=== PATIENT | female | born 1965 | race Caucasian/White ===

== ENCOUNTER 2016-11-25 08:26 | Day surgery (SDC) | payer BC ==
[~2016-11-25 08:26] MED LIST: Lactated Ringers 1,000 ML IV SCH; Lidocaine 1%/Sod Bicarbonate in NS 8.4% 1 ML Syringe PRN; Sodium Chloride 0.9% 10 ML Syringe FLUSH PRN
[2016-11-25] MEDS ORDERED: Lidocaine 1% 4 ML ONE (08:31)
[2016-11-25] MEDS ORDERED: Propofol 200 MG/20 ML SDV ONE ×5 (08:31→12:53)
[2016-11-25] MEDS ORDERED: fentaNYL 100 MCG/2 ML SDV ONE ×2 (08:32→13:09)
[2016-11-25] MEDS ORDERED: Midazolam 1 MG/ML 2 ML SDV ONE ×2 (08:32→13:00)
[2016-11-25] MEDS ORDERED: Lidocaine 1% 30 ML SDV ONE (09:22)
--- NOTE | 2016-11-25 09:27 | PCM.PREANE ---
Preanesthetic Assessment - Anesthesia/Transfusion/Family Hx Anesthesia History: Prior Anesthesia Without Reaction Family History of Anesthesia Reaction: Other (see below) (no idea- adopted) Transfusion History: No Prior Transfusion(s) - Review of Systems General: No Symptoms Pulmonary: Cough (has allergies) Cardiovascular: No Symptoms Gastrointestinal: No Symptoms Neurological: No Symptoms Other: Reports: Easy Bruising, Diabetes, Thyroid Problems, Sinus Problem ( allergies), Anxiety - Physical Assessment NPO Status Date: 11/24/16 NPO Status Time: 21:30 O2 Sat by Pulse Oximetry: 95 Respiratory Rate: 16 Vital Signs: Last Vital Signs Temp 98.1 F 11/25/16 08:30 Pulse 69 11/25/16 08:30 Resp 16 11/25/16 08:30 BP 120/75 11/25/16 08:30 Pulse Ox 95 11/25/16 08:30 Height: 5 ft 5 in Weight: 79.379 kg ASA Class: 2 Mental Status: Alert & Oriented x3 Airway Class: Mallampati = 1 Dentition: Reports: Normal Dentition, Partial Thyro-Mental Finger Breadths: 3 Mouth Opening Finger Breadths: 3 ROM/Head Extension: Full Lungs: Clear to Auscultation, Normal Respiratory Effort Cardiovascular: Regular Rate, Regular Rhythm - Lab Values: Laboratory Last Values POC Glucose 102 mg/dL (70-105) 11/25/16 08:46 - Imaging/EKG Impressions: CXR 11/08/16 nothing acute EKG 11/08/16 SR 71 - Allergies Allergies/Adverse Reactions: Allergies Allergy/AdvReac Type Severity Reaction Status Date / Time bee pollen Allergy Cannot Verified 11/24/16 15:00 Remember cefdinir Allergy Cannot Verified 11/24/16 15:00 Remember Penicillins Allergy Cannot Verified 11/24/16 15:00 Remember Sulfa (Sulfonamide Allergy Cannot Verified 11/24/16 15:00 Antibiotics) Remember - Blood Blood Available: No - Acknowledgements Anesthesia Type Planned: MAC Pt an Appropriate Candidate for the Planned Anesthesia: Yes Alternatives and Risks of Anesthesia Discussed w Pt/Guardian: Yes Pt/Guardian Understands and Agrees with Anesthesia Plan: Yes PreAnesthesia Questionnaire HEENT History: Reports: Otitis Media, Other (See Below) Other HEENT History: tonsillitis Cardiovascular History: Reports: High Cholesterol, Hypertension Respiratory History: Reports: Asthma, Sleep Apnea, Other (See Below) Other Respiratory History: URI, cough, bronchitis, use of CPAP Gastrointestinal History: Reports: Other (See Below) Other Gastrointestinal History: nausea Genitourinary History: Reports: None WEAVER TIRE CORD History: Reports: None Musculoskeletal History: Reports: Other (See Below) Other Musculoskeletal History: left shoulder pain and bursitis Neurological History: Reports: None Psychiatric History: Reports: Anxiety, Depression, Other (See Below) Other Psychiatric History: fatgiue, insomnia Endocrine/Metabolic History: Reports: Diabetes, Type II, Hypothyroidism, Vitamin D Deficiency Other Endocrine/Metabolic History: thyroid nodule Hematologic History: Reports: None Immunologic History: Reports: None Oncologic (Cancer) History: Reports: None Dermatologic History: Reports: Other (See Below) Other Dermatologic History: dry skin - Past Surgical History Head Surgeries/Procedures: Reports: None HEENT Surgical History: Reports: Adenoidectomy GI Surgical History: Reports: Cholecystectomy Female Surgical History: Reports: Tubal Ligation Male Surgical History: Reports: None Endocrine Surgical History: Reports: Thyroid Biopsy Neurological Surgical History: Reports: None Musculoskeletal Surgical History: Reports: Other (See Below) Other Musculoskeletal Surgeries/Procedures:: hand surgery, low back surgery, carpal tunnel surgery Oncologic Surgical History: Reports: None - SUBSTANCE USE Smoking Status *Q: Current Every Day Smoker Tobacco Use Within Last Twelve Months: Cigarettes Second Hand Smoke Exposure: Yes Days Per Week of Alcohol Use: 3 Number of Drinks Per Day: 1 Total Drinks Per Week: 3 Recreational Drug Use History: No - HOME MEDS Home Medications: Home Meds Albuterol Sulfate [Proair Hfa] 2 puff INH QID PRN 11/24/16 [History] Albuterol [IJD: Albuterol] 1 dose NEB Q4H PRN 11/24/16 [History] Aspirin [Halfprin] 81 mg PO BEDTIME 11/24/16 [History] Budesonide/Formoterol [Symbicort 160-4.5 MCG] 2 puff INH BID 11/24/16 [History] Cholecalciferol (Vitamin D3) [Vitamin D3] 5,000 unit PO DAILY 11/24/16 [History] Escitalopram [Lexapro] 20 mg PO DAILY 11/24/16 [History] Ezetimibe [Zetia] 5 mg PO DAILY 11/24/16 [History] LORazepam [Ativan] 0.5 mg PO BID 11/24/16 [History] Levothyroxine [Synthroid] 50 mcg PO DAILY 11/24/16 [History] Lisinopril 20 mg PO DAILY 11/24/16 [History] Montelukast Sodium 10 mg PO BEDTIME 11/24/16 [History] Ondansetron [Zofran] 8 mg PO TID PRN 11/24/16 [History] metFORMIN [Glucophage XR] 500 mg PO BID 11/24/16 [History] traZODone HCl [Trazodone HCl] 100 mg PO BEDTIME 11/24/16 [History] - CURRENT (IN HOUSE) MEDS Current Meds: Current Medications Lactated Ringer's (Ringers, Lactated) 1,000 mls @ 125 mls/hr IV ASDIRECTED STEPHANIE Stop: 11/25/16 23:00 Last Admin: 11/25/16 08:45 Dose: 125 mls/hr Lidocaine/Sodium Bicarbonate (Buffered Lidocaine 1% In Ns 8.4%) 0.25 ml .XX ONETIME PRN PRN Reason: Prior to IV Start Stop: 11/25/16 18:00 Last Admin: 11/25/16 08:45 Dose: 0.25 ml Sodium Chloride (Saline Flush) 10 ml FLUSH ASDIRECTED PRN PRN Reason: Keep Vein Open Stop: 11/25/16 18:00 Discontinued Medications Fentanyl (Sublimaze) Confirm Administered Dose 100 mcg .ROUTE .STK-MED ONE Stop: 11/25/16 08:33 Lidocaine HCl (Xylocaine-Mpf 1%) Confirm Administered Dose 4 mls @ as directed .ROUTE .STK-MED ONE Stop: 11/25/16 08:32 Midazolam HCl (Versed 1 Mg/Ml) Confirm Administered Dose 2 mg .ROUTE .STK-MED ONE Stop: 11/25/16 08:33 Propofol (Diprivan 20 Ml) Confirm Administered Dose 200 mg .ROUTE .STK-MED ONE Stop: 11/25/16 08:32
[2016-11-25] MEDS ORDERED: Lactated Ringers 1,000 ML ONE (10:06)
[2016-11-25] MEDS ORDERED: Ondansetron 4 MG/2 ML SDV ONE (10:07)
[2016-11-25] MEDS ORDERED: Ketorolac 30 MG/ML SDV ONE (10:09)
[2016-11-25] MEDS ORDERED: Clindamycin Phosphate 900 MG in Sodium Chloride 0.9% 100 ML IV ONE (11:11)
[2016-11-25] MEDS: Bupivacaine 0.5% 30 ML SDV ONE ×2 (11:26→11:39)
[2016-11-25] MEDS ORDERED: Albuterol 0.083% 2.5 MG/3 ML Neb Soln NEB PRN (11:40)
[2016-11-25] MEDS ORDERED: diphenhydrAMINE 50 MG/ML SDV IVPUSH PRN (11:40)
[2016-11-25] MEDS ORDERED: Ondansetron 4 MG/2 ML SDV IVPUSH PRN (11:40)
[2016-11-25] MEDS ORDERED: HYDROmorphone 1 MG/ML Syringe ONE (11:52)
[2016-11-25] MEDS ORDERED: HYDROmorphone 0.5 MG/0.5 ML Syringe IVPUSH PRN (12:30)
[2016-11-25] MEDS ORDERED: fentaNYL 100 MCG/2 ML SDV IVPUSH PRN (12:30)
--- NOTE | 2016-11-25 13:40 | PCM48HPAN ---
Post Anesthesia Note - EVALUATION WITHIN 48HRS OF ANESTHETIC Vital Signs in Normal Range: Yes Patient Participated in Evaluation: Yes Respiratory Function Stable: Yes Airway Patent: Yes Cardiovascular Function Stable: Yes Hydration Status Stable: Yes Pain Control Satisfactory: Yes Nausea and Vomiting Control Satisfactory: Yes Mental Status Recovered: Yes (rests- no complaints)
[2016-11-25 15:05] VITALS: BP 128/72
--- NOTE | 2016-11-25 15:37 | CR ---
Left foot: Eight fluoroscopic spot views were obtained of the left foot utilizing C-arm device. Comparison: No prior foot exam. Pin is seen crossing the base of the first metatarsal to the second cuneiform bone. Final film shows [address] from the base of the first metatarsal to the first cuneiform bone. Fluoroscopy time is given as 21.8 seconds. Impression: 1. Operative change as described above. Diagnostic code #2
--- NOTE | 2016-11-26 12:17 | OR ---
DATE OF OPERATION: 11/25/2016 SURGEON: Angelo Ibrahim II, DPM LOCATION: [facility]. ANESTHESIA: LMA general with local block about the left foot. ANESTHESIA PROVIDER: Isabel Graham CRNA. HEMOSTASIS: Left pneumatic thigh tourniquet at 300 mmHg pressure. 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 OPERATION PERFORMED: Lapidus bunionectomy with internal staple fixation, left foot. DESCRIPTION OF PROCEDURE: Upon arrival and admission to the hospital, the patient was examined and cleared for surgery by the assigned Anesthesia provider. IV access was obtained in the preoperative area, where prophylactic antibiotics consisting of 900 mg of clindamycin IV piggyback was administered. The patient was then brought to the OR via gurney and transferred onto the operating room table in the supine position. The patient was given a combination of sedations and was adequately sedated, before being intubated for LMA general anesthesia. During this time of sedation, the patient received 10 mL of a 1:1 mixture of 1% lidocaine plain and 0.25% Marcaine plain in the form of a local infiltrative block about the ankle as well as the operatory site located at the dorsal medial aspect of the left first metatarsal cuneiform joint. The left lower extremity was wrapped with cotton Webril padding about the thigh and preparation for a nonsterile pneumatic thigh tourniquet, which was then later draped with a sterile drape. The left lower extremity would then be prepped and draped in the usual aseptic manner. The left lower extremity would then be elevated and exsanguinated with an Esmarch bandage before inflating the pneumatic thigh tourniquet about the left thigh to 300 mmHg pressure. The Esmarch bandage was removed and the left lower extremity was placed back to the level of the operating room table. Attention was then directed to the medial column of the left foot, where incision just distal to the medial aspect of the left first metatarsal phalangeal joint was created and then carried to a centimeter proximal to the left first metatarsal cuneiform joint. This was a controlled-depth skin incision taken down to the level of the subcutaneous structures with care taken to retract the vital neurovascular structures within the area. Continued soft tissue dissection was then taken down to the level of the teno-capsular structures overlying the first metatarsophalangeal joint and a linear capsulotomy was created just medial to the extensor hallucis longus tendon. The left first metatarsal phalangeal joint was then dissected free of its soft tissue attachments and the McGlamry scoop elevator was utilized to free up the adhesions at the plantar aspect of the left first metatarsal head. Likewise, the lateral capsule was released, was undertaken at the lateral extent of the first metatarsal phalangeal joint. A release of the adductor hallucis tendon was undertaken of the base at the lateral aspect of the proximal phalanx of the hallux. A power sagittal saw was then utilized to resect the medial eminence about the medial aspect of the left first metatarsal head. Attention was then directed to the left first metatarsal cuneiform joint and a transverse capsulotomy was performed to gain access to the joint, which was then distracted with a laminar subeditor. This allowed for dissection of the cartilaginous surfaces of the left first metatarsocuneiform joint with the power sagittal saw. A small wedge of bone was taken out laterally to allow for reduction of the intermetatarsal angle of the first and second metatarsals. Intraoperative fluoroscopy in the AP and lateral views confirmed reduction of this intermetatarsal angle and the resected bases of the medial cuneiform as well as the first metatarsal were denuded of the cartilage and subchondral bone plate on both resected surfaces were fenestrated with a 0.062 K-wire. The resected surfaces were then placed in the close apposition and with the intermetatarsal angle reduced and held in place with a 0.062 K-wire allowing for a 20 x 20 mm Nitinol [employer] staple to be placed at the dorsal aspect of the first metatarsal cuneiform joint and the second staple was then placed, being 15 mm x 15 mm at the medial extent of the first metatarsal cuneiform joint. Intraoperative fluoroscopy AP and lateral views then confirmed placement of the jenny and the wound was copiously lavaged with sterile saline solution. Sutures and closure of the deep and capsular structures were undertaken utilizing 3-0 Vicryl, while the subcuticular layer was reapproximated with 4-0 Vicryl and the skin was reapproximated with running interlocking simple suture knots utilizing 4-0 Prolene and postoperative anesthesia would consist of an additional 20 mL of 0.25% Marcaine plain injected about the operatory site. Dressings would then consist of Betadine-soaked Adaptic gauze, 4 x 4 gauze, Cody, and Cyrus bandage. Upon near completion of the surgery, the left pneumatic thigh tourniquet was deflated. It was noted that digits 1 through 5 of the left foot became pink indicating that normal vascular perfusion had returned. The patient appeared to tolerate the procedure and anesthesia well, and will leave the OR for recovery with her vital signs being stable and vascular status intact digits 1 through 5 of the left foot with no apparent complications. Prior to leaving the operatory room for postoperative anesthesia care unit, a below-knee fiberglass splint was placed about the posterior aspects of the left lower extremity and plantar aspect of the left foot. In recovery, the patient received written and oral postoperative instructions of postoperative pain medication. The patient had revealed prior to the surgery that she had no history of DVT. The patient will be nonweightbearing with crutches or a knee scooter for her left lower extremity. The patient will follow up for her first postoperative followup evaluation within the next 72 hours. Estimated blood loss for this procedures was 10 to 15 mL. There were no apparent or obvious complications. ESTIMATED BLOOD LOSS: MMODAL /[id number]
== END 2016-11-25 14:55 | disposition home or self-care (01) ==
LOC: JD.SDS 08:26
PROVIDERS: ATTEND Podiatrist Foot & Ankle Surgery
DX: M21.612 Bunion of left foot (principal); I10 Essential (primary) hypertension; E11.9 Type 2 diabetes mellitus without complications; E03.9 Hypothyroidism, unspecified; F17.210 Nicotine dependence, cigarettes, uncomplicated; F41.9 Anxiety disorder, unspecified; E55.9 Vitamin D deficiency, unspecified; E78.00 Pure hypercholesterolemia, unspecified; J44.9 Chronic obstructive pulmonary disease, unspecified; Z87.440 Personal history of urinary (tract) infections; Z79.82 Long term (current) use of aspirin; Z79.84 Long term (current) use of oral hypoglycemic drugs; Z79.51 Long term (current) use of inhaled steroids; Z79.899 Other long term (current) drug therapy; Z88.0 Allergy status to penicillin; Z88.1 Allergy status to other antibiotic agents; Z88.2 Allergy status to sulfonamides; Z91.030 Bee allergy status; Z98.51 Tubal ligation status; Z90.49 Acquired absence of other specified parts of digestive tract; Z98.890 Other specified postprocedural states
CPT/HCPCS: 28297; 76000; 82962; J1170; J1885; J2250; J2405; J3010; J7030; J7120; 01480; C1713; C1769; J2704

== ENCOUNTER 2017-03-22 09:29 | Day surgery (SDC) | payer BC ==
--- NOTE | 2017-03-22 09:27 | PCM.PREANE ---
<Isabel Graham - Last Filed: 03/22/17 09:21> Preanesthetic Assessment - Anesthesia/Transfusion/Family Hx Anesthesia History: Prior Anesthesia Without Reaction Family History of Anesthesia Reaction: Other (see below) (not known adopted) Transfusion History: No Prior Transfusion(s) Intubation History: Unknown - Review of Systems Pulmonary: No Symptoms (History of Asthma/current day smoker 0.5pk/day times 37 years/AYANA with CPAP) Cardiovascular: No Symptoms (history of HTN) Other: Reports: Diabetes (AM blood sugar= ), Thyroid Problems (hypothyroid), Depression, Anxiety - Physical Assessment NPO Status Date: 03/21/17 Height: 1.65 m ASA Class: 2 Mental Status: Alert & Oriented x3 - Lab Values: MRSA screen negative. HGB A1C: 5.4% All other labs reviewed and noted and within acceptable ranges to proceed with scheduled procedure. HCG: History of tubal ligation. - Imaging/EKG Impressions: EKG: SR rate=71. CXR: negative - Allergies Allergies/Adverse Reactions: Allergies Allergy/AdvReac Type Severity Reaction Status Date / Time bee pollen Allergy Cannot Verified 03/18/17 14:33 Remember cefdinir Allergy Cannot Verified 03/18/17 14:33 Remember Penicillins Allergy Cannot Verified 03/18/17 14:33 Remember Sulfa (Sulfonamide Allergy Cannot Verified 03/18/17 14:33 Antibiotics) Remember - Anesthesia Plan Pre-Op Medication Ordered: None - Acknowledgements Anesthesia Type Planned: General Anesthesia Pt an Appropriate Candidate for the Planned Anesthesia: Yes Alternatives and Risks of Anesthesia Discussed w Pt/Guardian: Yes Pt/Guardian Understands and Agrees with Anesthesia Plan: Yes PreAnesthesia Questionnaire HEENT History: Reports: Allergic Rhinitis, Otitis Media, Sinusitis, Other (See Below) Other HEENT History: tonsillitis, otitis externa, contacts/glasses, partials Cardiovascular History: Reports: High Cholesterol, Hypertension Respiratory History: Reports: Asthma, Sleep Apnea, Other (See Below) Other Respiratory History: URI, cough, bronchitis, use of CPAP Gastrointestinal History: Reports: Other (See Below) Other Gastrointestinal History: nausea Genitourinary History: Reports: None, UTI, Recurrent, Other (See Below) Other Genitourinary History: hematuria RN CLINICAL RESEARCH History: Reports: None Musculoskeletal History: Reports: Other (See Below) Other Musculoskeletal History: left shoulder pain and bursitis Neurological History: Reports: None Psychiatric History: Reports: Anxiety, Depression, Other (See Below) Other Psychiatric History: fatgiue, insomnia Endocrine/Metabolic History: Reports: Diabetes, Type II, Hypothyroidism, Vitamin D Deficiency Other Endocrine/Metabolic History: thyroid nodule Hematologic History: Reports: None Immunologic History: Reports: None Oncologic (Cancer) History: Reports: None Dermatologic History: Reports: Other (See Below) Other Dermatologic History: dry skin - Past Surgical History Head Surgeries/Procedures: Reports: None HEENT Surgical History: Reports: Adenoidectomy Cardiovascular Surgical History: Reports: None Respiratory Surgical History: Reports: None GI Surgical History: Reports: Cholecystectomy Female Surgical History: Reports: Tubal Ligation Male Surgical History: Reports: None Endocrine Surgical History: Reports: Thyroid Biopsy Neurological Surgical History: Reports: None Musculoskeletal Surgical History: Reports: Other (See Below) Other Musculoskeletal Surgeries/Procedures:: hand surgery, low back surgery, carpal tunnel surgery Oncologic Surgical History: Reports: None - SUBSTANCE USE Smoking Status *Q: Current Every Day Smoker Tobacco Use Within Last Twelve Months: Cigarettes Second Hand Smoke Exposure: Yes Days Per Week of Alcohol Use: 3 Number of Drinks Per Day: 1 Total Drinks Per Week: 3 Recreational Drug Use History: No - HOME MEDS Home Medications: Home Meds Albuterol Sulfate [Proair Hfa] 2 puff INH QID PRN 11/24/16 [History] Albuterol [IJD: Albuterol] 1 dose NEB Q4H PRN 11/24/16 [History] Aspirin [Halfprin] 81 mg PO BEDTIME 11/24/16 [History] Budesonide/Formoterol [Symbicort 160-4.5 MCG] 2 puff INH BID 11/24/16 [History] Cholecalciferol (Vitamin D3) [Vitamin D3] 5,000 unit PO DAILY 11/24/16 [History] Escitalopram [Lexapro] 20 mg PO DAILY 11/24/16 [History] Ezetimibe [Zetia] 5 mg PO DAILY 11/24/16 [History] LORazepam [Ativan] 0.5 mg PO BID 11/24/16 [History] Levothyroxine [Synthroid] 50 mcg PO DAILY 11/24/16 [History] Lisinopril 20 mg PO DAILY 09/06/17 [History] Montelukast Sodium 10 mg PO BEDTIME 11/24/16 [History] Ondansetron [Zofran] 8 mg PO TID PRN 11/24/16 [History] metFORMIN [Glucophage XR] 500 mg PO BID 11/24/16 [History] traZODone HCl [Trazodone HCl] 100 mg PO BEDTIME 11/24/16 [History] - CURRENT (IN HOUSE) MEDS Current Meds: Current Medications Albuterol (Proventil Neb Soln) 2.5 mg NEB ONETIME ONE Stop: 03/22/17 10:13 Lactated Ringer's (Ringers, Lactated) 1,000 mls @ 125 mls/hr IV ASDIRECTED STEPHANIE Stop: 03/22/17 18:00 Lidocaine/Sodium Bicarbonate (Buffered Lidocaine 1% In Ns 8.4%) 0.25 ml IV ONETIME PRN PRN Reason: Prior to IV Start Stop: 03/22/17 18:00 Scopolamine (Scopolamine) 1 each TOP ONETIME ONE Stop: 03/22/17 10:13 Sodium Chloride (Saline Flush) 10 ml FLUSH ASDIRECTED PRN PRN Reason: Keep Vein Open Stop: 03/22/17 18:00 Discontinued Medications Cefazolin Sodium (Ancef) Confirm Administered Dose 2 gm .ROUTE .STK-MED ONE Stop: 03/22/17 09:00 Dexamethasone (Dexamethasone) Confirm Administered Dose 4 mg .ROUTE .STK-MED ONE Stop: 03/22/17 09:43 Fentanyl (Sublimaze) Confirm Administered Dose 250 mcg .ROUTE .STK-MED ONE Stop: 03/22/17 09:00 Hydromorphone HCl (Dilaudid) Confirm Administered Dose 1 mg .ROUTE .STK-MED ONE Stop: 03/22/17 09:00 Lidocaine/Epinephrine (Xylocaine 1% With Epinephrine 1:100,000) Confirm Administered Dose 20 ml .ROUTE .STK-MED ONE Stop: 03/22/17 10:00 Midazolam HCl (Versed 1 Mg/Ml) Confirm Administered Dose 2 mg .ROUTE .STK-MED ONE Stop: 03/22/17 09:00 Ondansetron HCl (Zofran) Confirm Administered Dose 4 mg .ROUTE .STK-MED ONE Stop: 03/22/17 09:00 Propofol (Diprivan 20 Ml) Confirm Administered Dose 200 mg .ROUTE .STK-MED ONE Stop: 03/22/17 09:00 Rocuronium [place] (Zemuron) Confirm Administered Dose 50 mg .ROUTE .STK-MED ONE Stop: 03/22/17 09:00 Sodium Chloride (Normal Saline) Confirm Administered Dose 50 ml .ROUTE .STK-MED ONE Stop: 03/22/17 10:00 <Lucia Sherman - Last Filed: 03/22/17 10:17> Preanesthetic Assessment - Anesthesia/Transfusion/Family Hx Type of Anesthesia Reaction: Excessive Nausea/Vomiting - Review of Systems General: Other Gastrointestinal: Other Other: Reports: Diabetes (AM blood sugar= 94) - Physical Assessment NPO Status Time: 21:30 Pulse: 66 O2 Sat by Pulse Oximetry: 95 Respiratory Rate: 16 Blood Pressure: 128/77 Temperature: 36.0 C Weight: 83.2 kg Airway Class: Mallampati = 2 Dentition: Reports: Partial (upper partial removed) Thyro-Mental Finger Breadths: 3 Mouth Opening Finger Breadths: 3 ROM/Head Extension: Full Lungs: Normal Respiratory Effort, Wheezing (respiratory treatment prior to OR) Cardiovascular: Regular Rate, Regular Rhythm, No Murmurs - Blood Blood Available: No Product(s) Available: None
[~2017-03-22 09:29] MED LIST changes: +HYDROmorphone 1 MG/ML Syringe ONE; -Lactated Ringers 1,000 ML IV SCH; +Lidocaine 1%/Sod Bicarbonate in NS 8.4% 1 ML Syringe IV PRN; -Lidocaine 1%/Sod Bicarbonate in NS 8.4% 1 ML Syringe PRN; +Midazolam 1 MG/ML 2 ML SDV ONE; +Ondansetron 4 MG/2 ML SDV ONE; +Propofol 200 MG/20 ML SDV ONE; +Rocuronium 50 MG/5 ML Vial ONE; +ceFAZolin 1 GM Vial ONE; +fentaNYL 250 MCG/5 ML SDV ONE
[2017-03-22] MEDS ORDERED: Dexamethasone 4 MG/ML SDV ONE (09:42)
[2017-03-22] MEDS ORDERED: Sodium Chloride 0.9% 50 ML SDV ONE (09:59)
[2017-03-22] MEDS ORDERED: Lidocaine 1% with EPINEPHrine 1:100,000 20 ML MDV ONE (09:59)
[2017-03-22] MEDS: Lactated Ringers 1,000 ML IV SCH ×2 (10:00→13:00)
[2017-03-22] MEDS ORDERED: Albuterol 0.083% 2.5 MG/3 ML Neb Soln NEB ONE ×2 (10:12→12:38)
[2017-03-22] MEDS ORDERED: Scopolamine 1 MG Transdermal Patch TOP ONE (10:12)
[2017-03-22] MEDS ORDERED: Clindamycin Phosphate 900 MG in Sodium Chloride 0.9% 100 ML IV ONE (10:45)
[2017-03-22] MEDS ORDERED: HYDROmorphone 1 MG/ML Syringe ONE (12:02)
[2017-03-22] MEDS ORDERED: Lactated Ringers 1,000 ML ONE (12:02)
--- NOTE | 2017-03-22 12:11 | PCM.POSTAN ---
POST ANESTHESIA ASSESSMENT - MENTAL STATUS Mental Status: Alert, Oriented - VITAL SIGNS Pulse Rate: 89 SaO2: 100 Resp Rate: 14 Blood Pressure: 128/70 Temperature: 97.6 C - RESPIRATORY Respiratory Status: Respiratory Rate WNL, Airway Patent, O2 Saturation Stable, Supplemental Oxygen - CARDIOVASCULAR CV Status: Pulse Rate WNL, Blood Pressure Stable - GASTROINTESTINAL GI Status: No Symptoms - PAIN Pain Score: 0 Free Text/Narrative:: 0 - POST OP HYDRATION Hydration Status: Adequate & Stable
[2017-03-22] MEDS ORDERED: Ondansetron 4 MG/2 ML SDV IVPUSH PRN ×2 (12:12→12:38)
[2017-03-22] MEDS ORDERED: HYDROmorphone 0.5 MG/0.5 ML Syringe IVPUSH PRN (12:12)
[2017-03-22] MEDS ORDERED: fentaNYL 100 MCG/2 ML SDV IVPUSH PRN (12:12)
[2017-03-22] MEDS ORDERED: Neostigmine Methylsulfate 1 MG/ML 5 ML Syringe ONE (12:12)
[2017-03-22] MEDS ORDERED: Metoclopramide 10 MG/2 ML SDV IVPUSH PRN (12:12)
--- NOTE | 2017-03-22 12:15 | PCM.OPNOTE ---
- General Post-Op/Procedure Note Date of Surgery/Procedure: 03/22/17 Operative Procedure(s): Total vaginal hysterectomy bilateral salpingo- oophorectomy 51748 Pre Op Diagnosis: Postmenopausal bleeding Post-Op Diagnosis: Same Anesthesia Technique: General ET Tube Primary Surgeon: Ajit Brennan Secondary Surgeon: Michael Stafford (1st asst) Anesthesia Provider: Lucia Sherman Seat Mender: Jason Guzman (2nd asst) Reason Seat Mender Was Necessary: Retraction, difficult procedure, decrease col-comorbidity and co-mortality Role of Seat Mender: Retraction, difficult procedure, decrease col-comorbidity and co-mortality Fluid Replacement, Intraop: 1,700 Output, Urine Amount: 225 EBL in mLs: 25 Drain/Tube Comments:: None Complications: None Condition: Good Free Text/Narrative:: Patient was transported to operating room #2 and placed under general anesthesia in the low dorsal lithotomy position. Prepared and draped in a sterile fashion. SCDs in place and functioning prior surgery. She had received clindamycin prior to surgery 900 mg as history of allergy to cephalosporins and penicillin. Timeout performed confirming name, date of , and procedure as total vaginal hysterectomy bilateral salpingo-oophorectomy possible abdominal approach if needed the cervix was grasped and injected with 0.25% lidocaine 20 mL with epinephrine and multiple confluent areas. The cervix was circumscribed. Posterior colpotomy was performed without difficulty. The uterosacral and cardinal ligament bundles were crossclamped with LigaSure activated and incised. Proceeding cephalad additional pedicle collected bilaterally crossclamped activated and incised the anterior colpotomy was then performed without difficulty and proceeding in a pedicle fashion cephalad until the area of the triple pedicles bilaterally the uterus was inverted through the posterior portion of the incision crossclamped with Luciana clamps triple pedicles bilaterally and the uterus and cervix removed. The tube and ovary on the left side were grasped and the infundibulopelvic ligament crossclamped with LigaSure activated and incised. No bleeding, same procedure was carried out on the opposite side no bleeding. Reinspection of the areas of the removal of the tubes at the infundibulopelvic ligament and no bleeding sponge needle pack asthma sharp count correct 2 and the posterior vaginal cuff was closed with a running locking suture of #0 Monocryl. The anterior posterior vaginal cuff and approximated incorporating the peritoneum anteriorly as well with running locking suture of 0 Monocryl. No blood transfusions required patient was transported to postanesthesia care unit in satisfactory condition.
[2017-03-22] MEDS ORDERED: fentaNYL 100 MCG/2 ML SDV ONE (12:30)
[2017-03-22] MEDS ORDERED: Acetaminophen/oxyCODONE 325-5 MG Tab PO ONE (14:32)
[2017-03-22 15:00] VITALS: BP 123/58
== END 2017-03-22 14:45 | disposition home or self-care (01) ==
LOC: JD.SDS 09:29
PROVIDERS: ATTEND Obstetrics & Gynecology
DX: D25.9 Leiomyoma of uterus, unspecified (principal); M79.89 Other specified soft tissue disorders; E11.9 Type 2 diabetes mellitus without complications; E03.9 Hypothyroidism, unspecified; Z88.0 Allergy status to penicillin; Z88.1 Allergy status to other antibiotic agents; Z88.2 Allergy status to sulfonamides; Z91.030 Bee allergy status; Z79.82 Long term (current) use of aspirin; Z79.84 Long term (current) use of oral hypoglycemic drugs; Z79.899 Other long term (current) drug therapy; F17.210 Nicotine dependence, cigarettes, uncomplicated
CPT/HCPCS: 36415; 58262; 82962; 86850; 86900; 86901; 94640; A9270; J1100; J1170; J2250; J2405; J2710; J3010; J7030; J7120; 00944; J0690; J2704

== ENCOUNTER 2020-09-30 19:51 | Emergency (ER) | payer BC ==
[2020-09-30 20:14] VITALS: BP 151/88; PULSE 75
[2020-09-30] MEDS ORDERED: Levofloxacin 250 MG Tab PO ONE (20:51)
--- NOTE | 2020-09-30 21:03 | EDM.PDOC ---
ED HPI GENERAL MEDICAL PROBLEM - General Chief Complaint: [employer]GER Problem Stated Complaint: VAGINAL BLEEDING/PRESSURE Time Seen by Provider: 09/30/20 20:15 Source of Information: Reports: Patient, RN Notes Reviewed History Limitations: Reports: No Limitations - History of Present Illness INITIAL COMMENTS - FREE TEXT/NARRATIVE: Patient is a 54-year-old female who presents to the ER for evaluation of her possible vaginal bleeding. Patient states that at roughly 5:00 PM, she noticed some bright red blood when she was wiping after she went to the bathroom. She notes since then, she has had urinary frequency, and a severe sense of pressure and urgency when she has to urinate. She is not having any dysuria. She states that she has had a hysterectomy with both of her ovaries removed several years ago, and has had no issues with her pelvic area since then. She thought maybe she was passing some tissue as well. She denies any sick-like symptoms fever chills, cough or shortness of breath, nausea/vomiting/diarrhea. Further denying any rectal issues like hemorrhoids that could be the source of the bleeding. Patient states that she has had no trauma to the area however at about 1 PM this afternoon, she did strike her right hip fairly hard on a countertop, but she is having no pain in that area. Notes that her and her last had sex on September 26, and has denied any sort of rough intercourse since then. Patient had the hysterectomy performed by Dr. Brennan. Lower Abdominal Pain Score (Numeric/FACES): 7 - Related Data Allergies Allergy/AdvReac Type Severity Reaction Status Date / Time bee pollen Allergy Cannot Verified 09/30/20 20:14 Remember cefdinir Allergy Cannot Verified 09/30/20 20:14 Remember Penicillins Allergy Cannot Verified 09/30/20 20:14 Remember Sulfa (Sulfonamide Allergy Cannot Verified 09/30/20 20:14 Antibiotics) Remember Home Meds: Home Meds Albuterol Sulfate [Proair Hfa] 2 puff INH QID PRN 11/24/16 [History] Albuterol [IJD: Albuterol] 1 dose NEB Q4H PRN 11/24/16 [History] Aspirin [Halfprin] 81 mg PO BEDTIME 11/24/16 [History] Budesonide/Formoterol [Symbicort 160-4.5 MCG] 2 puff INH BID 11/24/16 [History] Cholecalciferol (Vitamin D3) [Vitamin D3] 5,000 unit PO DAILY 11/24/16 [History] Escitalopram [Lexapro] 20 mg PO DAILY 11/24/16 [History] Ezetimibe [Zetia] 5 mg PO DAILY 11/24/16 [History] LORazepam [Ativan] 0.5 mg PO BID 11/24/16 [History] Levothyroxine [Synthroid] 50 mcg PO DAILY 11/24/16 [History] Lisinopril 20 mg PO DAILY 11/24/16 [History] Montelukast Sodium 10 mg PO BEDTIME 11/24/16 [History] Ondansetron [Zofran] 8 mg PO TID PRN 11/24/16 [History] metFORMIN [Glucophage XR] 500 mg PO BID 11/24/16 [History] traZODone HCl [Trazodone HCl] 100 mg PO BEDTIME 11/24/16 [History] Ondansetron [Zofran ODT] 4 mg PO Q6H #20 tab.dis 03/22/17 [Rx] Ondansetron [Zofran ODT] 4 mg PO Q6H #30 tab.dis 03/22/17 [Rx] oxyCODONE HCl/Acetaminophen [Percocet 5-325 mg Tablet] 1 each PO Q6H #25 tablet 03/22/17 [Rx] levoFLOXacin [Levofloxacin] 250 mg PO DAILY #4 tablet 09/30/20 [Rx] Past Medical History HEENT History: Reports: Otitis Media, Other (See Below) Other HEENT History: tonsillitis Cardiovascular History: Reports: High Cholesterol, Hypertension Respiratory History: Reports: Asthma, Sleep Apnea, Other (See Below) Other Respiratory History: URI, cough, bronchitis, use of CPAP Gastrointestinal History: Reports: Other (See Below) Other Gastrointestinal History: nausea Genitourinary History: Reports: None Other Genitourinary History: hematuria [employer]NAGER History: Reports: None Musculoskeletal History: Reports: Other (See Below) Other Musculoskeletal History: left shoulder pain and bursitis Neurological History: Reports: None Psychiatric History: Reports: Anxiety, Depression, Other (See Below) Other Psychiatric History: fatgiue, insomnia Endocrine/Metabolic History: Reports: Diabetes, Type II, Hypothyroidism, Vitamin D Deficiency Other Endocrine/Metabolic History: thyroid nodule Hematologic History: Reports: None Immunologic History: Reports: None Oncologic (Cancer) History: Reports: None Dermatologic History: Reports: Other (See Below) Other Dermatologic History: dry skin - Past Surgical History Head Surgeries/Procedures: Reports: None HEENT Surgical History: Reports: Adenoidectomy Cardiovascular Surgical History: Reports: None Respiratory Surgical History: Reports: None GI Surgical History: Reports: Cholecystectomy Female Surgical History: Reports: Hysterectomy, Tubal Ligation Endocrine Surgical History: Reports: Thyroid Biopsy Neurological Surgical History: Reports: None Musculoskeletal Surgical History: Reports: Other (See Below) Other Musculoskeletal Surgeries/Procedures:: hand surgery, low back surgery, carpal tunnel surgery, toe amputation Oncologic Surgical History: Reports: None Social & Family History - Tobacco Use Tobacco Use Status *Q: Current Every Day Tobacco User Years of Tobacco use: 40 Packs/Tins Daily: 0.5 - Caffeine Use Caffeine Use: Reports: Coffee - Recreational Drug Use Recreational Drug Use: No ED ROS GENERAL - Review of Systems Review Of Systems: Comprehensive ROS is negative, except as noted in HPI. ED EXAM, RENAL/ - Physical Exam Exam: See Below Exam Limited By: No Limitations General Appearance: Alert, WD/WN, No Apparent Distress Respiratory/Chest: No Respiratory Distress, Lungs Clear, Normal Breath Sounds, No Accessory Muscle Use, Chest Non-Tender Cardiovascular: Normal Peripheral Pulses, Regular Rate, Rhythm, No Edema GI/Abdominal: Normal Bowel Sounds, Soft, Non-Tender, No Distention, No Mass (Female) Exam: Normal External Exam, Normal Speculum Exam, Normal Bimanual Exam. No: Vaginal Bleeding, Vaginal Discharge, Vaginal Tears Neurological: Alert, Oriented, Normal Cognition, Normal Gait, No Motor/Sensory Deficits Psychiatric: Normal Affect, Normal Mood Skin Exam: Warm, Dry, Intact, Normal Color, No Rash Course - Vital Signs Last Recorded V/S: Last Vital Signs Temp 97.2 F 09/30/20 20:11 Pulse 75 09/30/20 20:11 Resp 16 09/30/20 20:11 BP 151/88 H 09/30/20 20:11 Pulse Ox 96 09/30/20 20:11 - Orders/Labs/Meds Orders: Active Orders 24 hr Category Date Time Status CULTURE URINE [MREF] Stat Lab 09/30/20 20:27 Received Labs: Laboratory Tests 09/30/20 Range/Units 20:27 Urine Color Red H (Yellow) Urine Appearance Cloudy H (Clear) Urine pH 6.0 (5.0-8.0) Ur Specific [place] 1.010 (1.005-1.030) Urine Protein 3+ H (Negative) Urine Glucose (UA) Negative (Negative) Urine Ketones Trace H (Negative) Urine Occult Blood 3+ H (Negative) Urine Nitrite Positive H (Negative) Urine Bilirubin 2+ H (Negative) Urine Urobilinogen 1.0 (0.2-1.0) Ur Leukocyte Esterase 3+ H (Negative) Urine RBC Too numerous to cnt H (0-5) /hpf Urine WBC 30-40 H (0-5) /hpf Ur Squamous Epith Cells 0-5 (0-5) /hpf Urine Bacteria Moderate H (FEW) /hpf Urine Mucus Few (FEW) /hpf Meds: Medications Discontinued Medications Generic Name Dose Route Start Last Admin Trade Name Freq PRN Reason Stop Dose Admin Levofloxacin 250 mg 09/30/20 20:51 Levofloxacin 250 Mg Tab PO 09/30/20 20:52 ONETIME ONE - Re-Assessments/Exams Free Text/Narrative Re-Assessment/Exam: 09/30/20 21:07 Patient presents to the ER for her possible vaginal bleeding, pelvic exam was obtained and there is no sign of vaginal bleedings, tears or trauma. It does appear this is a hemorrhagic cystitis, which is confirmed by urinalysis is nitrite positive red blood cells too numerous to count, white blood cells that range from 30-40 per high-power field, this was a clean-catch urine, and did not seem to have any contamination. Patient has multiple allergies to first-line antibiotics for UTI, we will go ahead and try Levaquin 250 mg for a few days to see if this helps relieve some of her symptoms I will have her follow-up in clinic if symptoms do not seem to be much better. Urine was reflexed for culture. Departure - Departure Time of Disposition: 21:09 Disposition: Home, Self-Care 01 Condition: Good Clinical Impression: UTI (urinary tract infection) Qualifiers: Urinary tract infection type: acute cystitis Hematuria presence: with hematuria Qualified Code(s): N30.01 - Acute cystitis with hematuria - Discharge Information *PRESCRIPTION DRUG MONITORING PROGRAM REVIEWED*: No *COPY OF PRESCRIPTION DRUG MONITORING REPORT IN PATIENT BETTIE: No Prescriptions: levoFLOXacin [Levofloxacin] 250 mg PO DAILY #4 tablet Instructions: Urinary Tract Infection, Adult, [id number] Referrals: Joie Jones PA-C [Primary Care Provider] - Additional Instructions: You have been evaluated in the ED for your urinary symptoms. Your urinalysis was consistent with an acute urinary tract infection. Your urine was sent for culture, and you will be notified if you should need a change in your antibiotic. This may take up to 48 hours to result. You may take AZO for urinary pain relief. This is available over the counter, and can be attained at any retail store like [employer] or any pharmacy. Please be aware that this medication will make your urine turn orange. You should only use this medication for a time period not longer than 72 hours. You have been given a prescription for levofloxacin 250 mg, 1 tablet daily for 5 days. Please note that the antibiotics can take up to 48 hours to start working. Your prescription has been electronically prescribed to the clinic pharmacy located in [facility], you may go there tomorrow during normal business hours to pick up and delivery driver and take as directed. Your first dose of medication was given at this ER visit. You do not need to take this medication until tomorrow night. Please increase your oral fluid intake and try to stay adequately hydrated. Recommend you keep in touch with the [facility], in a few days, to make sure that your symptoms are getting better as expected, and for culture results to further guide antibiotic therapy. Please return to the ED if your symptoms change or worsen. Sepsis Event Note (ED) - Evaluation Sepsis Screening Result: No Definite Risk - Focused Exam Vital Signs: Vital Signs Temp Pulse Resp BP Pulse Ox 09/30/20 20:11 97.2 F 75 16 151/88 H 96 - My Orders Last 24 Hours: My Active Orders 09/30/20 20:27 CULTURE URINE [MREF] Stat - Assessment/Plan Last 24 Hours: My Active Orders 09/30/20 20:27 CULTURE URINE [MREF] Stat
== END 2020-09-30 21:25 | disposition home or self-care (01) ==
LOC: JD.ED 19:51
DX: N30.01 Acute cystitis with hematuria (principal); I10 Essential (primary) hypertension; J45.909 Unspecified asthma, uncomplicated; E11.9 Type 2 diabetes mellitus without complications; E03.9 Hypothyroidism, unspecified; Z72.0 Tobacco use; Z91.030 Bee allergy status; Z88.1 Allergy status to other antibiotic agents; Z88.0 Allergy status to penicillin; Z88.2 Allergy status to sulfonamides; Z79.82 Long term (current) use of aspirin; Z79.84 Long term (current) use of oral hypoglycemic drugs; Z79.899 Other long term (current) drug therapy
CPT/HCPCS: 81001; 87086; 99283; A9270